=== PATIENT | female | born 2000 | race Two or more races ===

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

== ENCOUNTER 2023-04-09 19:37 | Outpatient (CLI) | payer OTHER ==
--- NOTE | 2023-04-10 16:05 | XRAY Report ---
PROCEDURE: Chest 2 View X-Ray INDICATIONS: BODY ACHES,FEVER,ACUTE COUGH TECHNIQUE: 2 views of the chest were acquired. COMPARISON: None. FINDINGS: Surgical changes and devices: None. Lungs and pleura: No pleural effusions or pneumothorax. Lungs are clear. Mediastinum: Mediastinal contours appear normal. Heart size is normal. Bones and chest wall: No suspicious bony lesions. Overlying soft tissues appear unremarkable. IMPRESSION: No acute cardiopulmonary process. Reviewed by: Clive Langston MD on 04/10/2023 4:03 PM PDT Approved by: Clive Langston MD on 04/10/2023 4:03 PM PDT Station ID: [id number]
== END 2023-04-09 19:38 | disposition home or self-care (01) ==
LOC: DI 19:37
PROVIDERS: ATTEND Registered Nurse
DX: M79.10 Myalgia, unspecified site (principal); R50.9 Fever, unspecified; R05.1 Acute cough